=== PATIENT | male | born 1995 | race Two or more races ===

== ENCOUNTER 2021-09-11 15:09 | Emergency (ER) | payer SELFPAY ==
[~2021-09-11] VITALS: Ht 167.6 cm; Wt 108.9 kg
[2021-09-11 17:39] VITALS: BP 149/96
== END 2021-09-11 17:53 | disposition home or self-care (01) ==
LOC: ER 15:09
DX: F41.1 Generalized anxiety disorder (principal); R07.89 Other chest pain
CPT/HCPCS: 93005

== ENCOUNTER 2022-01-15 18:39 | Emergency (ER) | payer BC, MEDICAID ==
[~2022-01-15] VITALS: Ht 167.6 cm; Wt 108.9 kg
[2022-01-15 22:06] LABS: Basophils # (auto) 0 10 ^3/uL (0-0.2); Basophils % (auto) 0.4 % (0.0-2.0); Eosinophils # (auto) 0 10 ^3/uL (0-0.8); Eosinophils % (auto) 0.6 % (0.0-7.0); Hematocrit 46.6 % (41.0-53.0); Hemoglobin 16.3 g/dL (13.5-17.5); Lymphocytes # (auto) 3.7 10 ^3/uL (0.4-5.4); Lymphocytes % (auto) 45.4 % (10.0-50.0); Mean Corpuscular Hemoglobin 29.7 pg (28.0-32.0); Mean Corpuscular Hgb Conc. 34.9 g/dL (32.0-36.0); Mean Corpuscular Volume 85.1 fL (80.0-100.0); Monocytes # (auto) 0.7 10 ^3/uL (0-1.3); Monocytes % (auto) 8.9 % (0.0-12.0); Neutrophils # (auto) 3.6 10 ^3/uL (1.6-8.6); Neutrophils % (auto) 44.7 % (37.0-80.0); Nucleated Red Blood Cells % 0.1 %; Red Blood Cells 5.48 10^6/uL (4.5-5.90); White Blood Cell 8.2 10^3/uL (4.4-10.8)
[2022-01-15 22:21] LABS: Potassium 3.9 mmol/L (3.5-5.1)
[2022-01-15 22:28] LABS: BUN/Creatinine Ratio 14.4; Bilirubin, Total 1.3 mg/dL (0.2-1.0); Calcium 9.1 mg/dL (8.5-10.1); Total Protein 7.8 g/dL (6.4-8.2)
[2022-01-15 23:30] VITALS: BP 160/93
[2022-01-15 23:40] LABS: Urine Bacteria NONE SEEN /hpf (None Seen); Urine Blood Negative /uL (Negative); Urine Specific Gravity 1.043 (1.001-1.035); Urine WBC <1 /hpf (0 - 3)
== END 2022-01-15 23:32 | disposition home or self-care (01) ==
LOC: ER 18:41
DX: R10.12 Left upper quadrant pain (principal); E11.9 Type 2 diabetes mellitus without complications
CPT/HCPCS: 36415; 74176; 80053; 81001; 83690; 85025